=== PATIENT | female | born 1960 | race African-American/Black ===

== ENCOUNTER → 2017-02-05 16:20 | Outpatient (CLI) | payer MEDICARE, MEDICAID | END | disposition home or self-care (01) | LOC: D.US 16:20 | DX: R60.0 Localized edema (principal) ==

== ENCOUNTER → 2017-06-12 16:31 | Outpatient (CLI) | payer MEDICARE, MEDICAID | END | disposition home or self-care (01) | LOC: D.RAD 16:31 | DX: R11.2 Nausea with vomiting, unspecified (principal) ==